=== PATIENT | male | born 1980 | race Caucasian/White ===

== ENCOUNTER 2016-08-27 07:54 | Emergency (ER) | payer OTHER ==
[~2016-08-27] VITALS: Ht 185.4 cm; Wt 86.4 kg
[2016-08-27 07:59] VITALS: BP 167/104; TEMP 98.1
[2016-08-27] MEDS ORDERED: NORCO 325 MG-51 TAB PO (09:11)
[2016-08-27] MEDS ORDERED: CEPHALEXIN500 M1 PO (09:11)
[2016-08-27 10:37] VITALS: PULSE 81
[2016-08-27] MEDS ORDERED: ADDERALL5 MG PO (10:46)
== END 2016-08-27 10:39 | disposition home or self-care (01) ==
LOC: COL.ER 07:54
DX: S66.323A Laceration of extensor muscle, fascia and tendon of left middle finger at wrist and hand level, initial encounter (principal); S61.412A Laceration without foreign body of left hand, initial encounter; W26.0XXA Contact with knife, initial encounter; Y92.89 Other specified places as the place of occurrence of the external cause

== ENCOUNTER 2018-02-07 21:55 | Emergency (ER) | payer SELFPAY ==
[~2018-02-07] VITALS: Ht 185.4 cm; Wt 84.1 kg
[~2018-02-07 21:55] MED LIST: ADDERALL5 MG PO; CEPHALEXIN500 M1 PO; NORCO 325 MG-51 TAB PO
[2018-02-07 22:06] VITALS: BP 162/93; TEMP 99.3
[2018-02-07] MEDS ORDERED: ATIVAN 0.50.5 MG/TAB PO (22:09)
[2018-02-07] MEDS ORDERED: AMOXICILLIN 8751 TAB PO (22:22)
[2018-02-07] MEDS ORDERED: NORCO 325 MG-51 TAB PO (22:22)
[2018-02-07 22:47] VITALS: PULSE 88
== END 2018-02-07 22:47 | disposition home or self-care (01) ==
LOC: COL.ER 21:55
DX: K08.89 Other specified disorders of teeth and supporting structures (principal)

== ENCOUNTER 2019-02-04 17:08 | Emergency (ER) | payer SELFPAY ==
[~2019-02-04] VITALS: Ht 182.9 cm; Wt 81.8 kg
[~2019-02-04 17:08] MED LIST changes: +AMOXICILLIN 8751 TAB PO; +ATIVAN 0.50.5 MG/TAB PO
[2019-02-04 17:46] VITALS: BP 170/96; TEMP 98.5
[2019-02-04] MEDS ORDERED: NORCO 325 MG-51 TAB PO (18:50)
[2019-02-04 19:59] VITALS: PULSE 89
== END 2019-02-04 19:34 | disposition home or self-care (01) ==
LOC: COL.ER 17:08
DX: S82.491A Other fracture of shaft of right fibula, initial encounter for closed fracture (principal); X50.1XXA Overexertion from prolonged static or awkward postures, initial encounter; Y92.009 Unspecified place in unspecified non-institutional (private) residence as the place of occurrence of the external cause
CPT/HCPCS: Q4041

== ENCOUNTER 2021-12-11 20:41 | Emergency (ER) | payer BC ==
[~2021-12-11] VITALS: Ht 185.4 cm; Wt 78.2 kg
[2021-12-11 20:50] VITALS: TEMP 99
[2021-12-11 21:45] LABS: BASO # 0.1 K/mm3 (0.0-0.2); BASO % 0.6 % (0.0-2.0); GRAN % 76.9 % (42.2-75.2); HEMATOCRIT 44.7 % (42.0-52.0); HEMOGLOBIN 15.3 g/dl (13.5-18.0); LYMPH # 1.8 K/mm3 (1.2-3.4); LYMPH % 12.6 % (20.0-51.0); MEAN CELL VOLUME 90 fl (80.0-100.0); MEAN CORPUSCULAR HEMOGLOBIN 31 pg (27-31); MEAN CORPUSCULAR HGB CONC 34 g/dl (33.0-37.0); MEAN PLATELET VOLUME 9.6 fl (7.4-10.4); MONO # 1.3 K/mm3 (0.1-0.6); MONO % 9.3 % (1.7-9.3); PLATELET COUNT 244 K/mm3 (130-400); RED BLOOD COUNT 4.96 M/mm3 (4.20-5.60); REDCELL DISTRIBUTION WIDTH-CV 12.9 % (11.5-14.5)
[2021-12-11 21:46] LABS: COLLECTION METHOD CLEAN CATCH
[2021-12-11 21:55] LABS: PH 5.5 (5.0-8.5); URINE APPEARANCE Clear (CLEAR/HAZY); URINE BLOOD Negative (NEGATIVE); URINE COLOR Yellow (YELLOW); URINE GLUCOSE Negative (NEGATIVE); URINE KETONE Negative (NEGATIVE); URINE NITRATE Negative (NEGATIVE); URINE PROTEIN(semi-quant) 1+ (NEGATIVE); URINE UROBILINOGEN 0.2 E.U/dL (0.2-1.0)
[2021-12-11 21:57] LABS: MUCOUS Present (NOT PRESENT); SQUAMOUS EPITHELIAL 0-2 /hpf (0-10); URINE BACTERIA None Seen /hpf (NONE SEEN); URINE RBC 0-2 /hpf (0-2)
[2021-12-11 22:07] LABS: TRICYCLIC ANTIDEPRESS URINE NEGATIVE
[2021-12-11 22:08] LABS: ALANINE AMINOTRANSFERASE 33 U/L (0-55); ALBUMIN 4.7 gm/dL (3.5-5.0); ALKALINE PHOSPHATASE 52 U/L (40-150); ANION GAP 12 mmol/L (7-16); AST,SGOT 21 U/L (5-34); BILIRUBIN,TOTAL 0.7 mg/dL (0.2-1.2); BLOOD UREA NITROGEN 18 mg/dL (9-21); CALCIUM 9.3 mg/dL (8.4-10.2); CARBON DIOXIDE 19 mmol/L (22-29); CHLORIDE 109 mmol/L (98-107); CREATINE KINASE 500 U/L (30-200); CREATININE, serum 0.98 mg/dL (0.72-1.25); GLUCOSE 90 mg/dL (70-99); MAGNESIUM 2.5 mg/dL (1.6-2.6); POTASSIUM 3.9 mmol/L (3.5-4.5); SODIUM 140 mmol/L (136-145); TOTAL PROTEIN 7.6 gm/dL (6.2-8.1)
[2021-12-11 22:09] LABS: ALCOHOL(ethanol),MEDICAL < 10 mg/dL (0-10)
[2021-12-12 00:16] VITALS: BP 144/106; PULSE 98
== END 2021-12-12 00:16 | disposition home or self-care (01) ==
LOC: COL.ER 20:41
PROVIDERS: Emergency Medicine
DX: S06.9X1A Unspecified intracranial injury with loss of consciousness of 30 minutes or less, initial encounter (principal); S40.012A Contusion of left shoulder, initial encounter; S90.812A Abrasion, left foot, initial encounter; X58.XXXA Exposure to other specified factors, initial encounter
CPT/HCPCS: J7120